=== PATIENT | female | born 1960 | race Caucasian/White ===

== ENCOUNTER 2018-07-27 17:02 | Inpatient (IN) | payer BC ==
[~2018-07-27] VITALS: Ht 157.5 cm; Wt 70.9 kg
[2018-07-27 17:09] VITALS: Ht 157.5 cm; Wt 70.9 kg
[2018-07-27 18:04] LABS: BASOPHIL % 1.2 % (0-2); RED CELL DISTRIBUTION WIDTH 13.3 % (11.5-14.5)
[2018-07-27 18:05] LABS: PLATELET COUNT 456 x10^3mcL (130-400)
[2018-07-27 18:16] LABS: CALCIUM 9.4 mg/dL (8.5-10.1); CARBON DIOXIDE 25.3 mmol/L (21-32); CHLORIDE SERUM 100 mmol/L (98-107); CREATININE SERUM 0.7 mg/dL (0.6-1.0); GFR1 > 60 mL/min; GLUCOSE SERUM 100 mg/dL (74-106); POTASSIUM SERUM 3.3 mmol/L (3.5-5.1); SODIUM SERUM 136 mmol/L (136-145)
[2018-07-27 18:20] LABS: ALBUMIN 3.8 g/dL (3.4-5.0); ALKALINE PHOSPHATASE 87 U/L (46-116); ALT/SGPT 51 U/L (14-59); AST/SGOT 22 U/L (15-37); BILIRUBIN TOTAL 0.3 mg/dL (0.20-1.00); PHOSPHOROUS 2.3 mg/dL (2.5-4.9); TOTAL PROTEIN, SERUM 7.7 g/dL (6.4-8.2); URIC ACID 3.7 mg/dL (2.6-6.0)
[2018-07-27 18:21] LABS: CHOLESTEROL 212 mg/dL (<200); HDL CHOLESTEROL 62 mg/dL (40-60)
[2018-07-27 20:27] LABS: microscopic required? NO
[2018-07-27 20:32] LABS: urine erythrocyte NEGATIVE (NEGATIVE)
[2018-07-27 20:40] LABS: AMPHETAMINE QUAL UR NONE DETECTED (See below)
[2018-07-27 20:51] VITALS: BP 123/80
[2018-07-27 21:00] LABS: CHOLESTEROL/HDL RATIO 3.6; MAGNESIUM 2.3 mg/dL (1.8-2.4)
[2018-07-28 04:38] VITALS: BP 104/68
[2018-07-28 06:17] LABS: BASOPHIL % 0.4 % (0-2); PLATELET COUNT 386 x10^3mcL (130-400); RED CELL DISTRIBUTION WIDTH 13.2 % (11.5-14.5)
[2018-07-28 06:27] LABS: CALCIUM 8.5 mg/dL (8.5-10.1); CARBON DIOXIDE 24.9 mmol/L (21-32); CHLORIDE SERUM 106 mmol/L (98-107); CREATININE SERUM 0.6 mg/dL (0.6-1.0); GFR1 > 60 mL/min; GLUCOSE SERUM 91 mg/dL (74-106); SODIUM SERUM 139 mmol/L (136-145)
[2018-07-28 07:52] VITALS: BP 108/66
[2018-07-28 12:02] VITALS: BP 104/61
[2018-07-28 16:00] VITALS: BP 101/69
[2018-07-28 20:38] VITALS: BP 98/62
[2018-07-29 05:00] VITALS: BP 103/66
[2018-07-29 06:41] LABS: BASOPHIL % 0.4 % (0-2); RED CELL DISTRIBUTION WIDTH 13.1 % (11.5-14.5)
[2018-07-29 06:55] LABS: PLATELET COUNT 406 x10^3mcL (130-400)
[2018-07-29 07:06] LABS: CALCIUM 8.7 mg/dL (8.5-10.1); CARBON DIOXIDE 27.6 mmol/L (21-32); CHLORIDE SERUM 107 mmol/L (98-107); CREATININE SERUM 0.6 mg/dL (0.6-1.0); GFR1 > 60 mL/min; GLUCOSE SERUM 90 mg/dL (74-106); MAGNESIUM 2.3 mg/dL (1.8-2.4); PHOSPHOROUS 4.1 mg/dL (2.5-4.9); POTASSIUM SERUM 4.1 mmol/L (3.5-5.1); SODIUM SERUM 142 mmol/L (136-145)
[2018-07-29 09:53] VITALS: BP 96/55
[2018-07-29 12:36] VITALS: BP 128/65
[2018-07-29] MEDS ORDERED: LIPI10 PO (13:57)
[2018-07-29 14:18] VITALS: BP 128/65
== END 2018-07-29 15:24 | disposition home or self-care (01) | DRG 880 ==
LOC: ED 17:02 → DU 19:41
PROVIDERS: Emergency Medicine; ADMIT Family Medicine
DX: F41.9 Anxiety disorder, unspecified (principal); E87.6 Hypokalemia; E78.5 Hyperlipidemia, unspecified; E83.39 Other disorders of phosphorus metabolism; Z88.2 Allergy status to sulfonamides; Z82.49 Family history of ischemic heart disease and other diseases of the circulatory system; Z82.3 Family history of stroke
CPT/HCPCS: 83880; A9500; J2270; J2405; J2785; J7030; Q0092